=== PATIENT | female | born 1960 | race Caucasian/White ===

== ENCOUNTER 2016-05-30 06:39 | Day surgery (SDC) | payer BC ==
[2016-05-30] MEDS ORDERED: Sodium Chloride 0.9% 1,000 ML IV SCH (07:00)
[2016-05-30] MEDS ORDERED: Propofol 200 MG/20 ML SDV ONE ×2 (07:33→07:52)
[2016-05-30] MEDS ORDERED: Midazolam 1 MG/ML 2 ML SDV ONE (07:33)
[2016-05-30] MEDS ORDERED: fentaNYL 100 MCG/2 ML SDV ONE ×2 (07:33→07:44)
--- NOTE | 2016-05-30 08:30 | PCM.OPNOTE ---
- General Post-Op/Procedure Note Date of Surgery/Procedure: 05/30/16 Operative Procedure(s): Colonoscopy with biopsy Findings: Polyp at 10 cm, splenic flexure and proximal descending Pre Op Diagnosis: Screening colonoscopy Post-Op Diagnosis: 3 polyps biopsied 10 cm, splenic flexure and proximal descending Primary Surgeon: Kareem Sandoval Sr Secondary Surgeon: Kareem Sandoval Sr Condition: Good Free Text/Narrative:: Sherrie Jha is a 56-year-old white female comes in for screening colonoscopy. She has no other concerns at present time. The risks and benefits were explained to her the procedure was done as an outpatient. During the procedure anesthesia was given by nurse cardiovascular operating room nurse and we used 100 mg of fentanyl 100 mcg of fentanyl and 400 mg of propofol. The Olympus 180 telescope was used. With the gloved finger the rectum was examined and then the tube was placed into the rectum and advanced under direct vision. At the clinic flexure noted a broad-based polyp this was biopsied and picture was taken. We then advanced and got to just before the cecum and noted a small polyp picture was taken and biopsy was done. The cecum was unremarkable. Upon slow retraction of the tube there were infrequent diverticuli noted. At 10 cm noted another polyp appeared to be hyperplastic this was biopsied. The rectum was unremarkable and the tube was removed the patient tolerated the procedure well. Preop: #1. Screening colonoscopy. Postop: 3 polypoid lesions were noted one at 10 cm one is splenic flexure and 1 at the proximal ascending colon. Biopsy report pending with the pathology report. She'll need another colonoscopy in 3 years.
[2016-05-30 10:03] VITALS: BP 111/74
== END 2016-05-30 09:50 | disposition home or self-care (01) ==
LOC: JP.SDS 06:39
PROVIDERS: ATTEND Internal Medicine
PROC: 0DBE8ZX Excision of Large Intestine, Via Natural or Artificial Opening Endoscopic, Diagnostic (ICD-10-PCS; principal; 2016-05-30)
PROC: 0DBK8ZX Excision of Ascending Colon, Via Natural or Artificial Opening Endoscopic, Diagnostic (ICD-10-PCS; 2016-05-30)
DX: Z12.11 Encounter for screening for malignant neoplasm of colon (principal); D12.3 Benign neoplasm of transverse colon; D12.2 Benign neoplasm of ascending colon; Z88.1 Allergy status to other antibiotic agents; Z88.2 Allergy status to sulfonamides
CPT/HCPCS: 36415; 45380; 80061; J2704; J3010; J7040; 88305; J2250

== ENCOUNTER 2020-05-04 06:41 | Day surgery (SDC) | payer BC ==
[2020-05-04] MEDS ORDERED: Midazolam 1 MG/ML 2 ML SDV ONE (07:09)
[2020-05-04] MEDS ORDERED: Propofol 200 MG/20 ML SDV ONE ×2 (07:09→07:46)
[2020-05-04] MEDS ORDERED: fentaNYL 100 MCG/2 ML SDV ONE (07:09)
[2020-05-04] MEDS ORDERED: Sodium Chloride 0.9% 1,000 ML IV SCH (07:15)
[2020-05-04 10:21] VITALS: BP 122/73; PULSE 69
--- NOTE | 2020-05-04 13:55 | PROC ---
DATE OF PROCEDURE: SURGEON: Kareem Sandoval MD INDICATIONS: This is a 60-year-old female who comes in for a screening colonoscopy. The risks and benefits were explained to the patient for colonoscopy. PROCEDURE IN DETAIL: She was taken to the OR. Anesthesia was given by nurse sales assistant. During the procedure, used 2 mg of Versed, 100 mcg of fentanyl, and 250 mg of propofol. The Olympus 180L scope was used. With a gloved finger, the rectum was examined and tube was placed into the rectum and advanced under direct vision. We did get to the cecum with the assistance of external pressure. Just proximal to the cecum, noted a small polyp that appeared hyperplastic, this was biopsied. Slow retraction of the tube noted no lesions or ulceration, and no abnormality except for diverticula, appeared entirely benign and not active. The rectum was unremarkable. The tube was removed. The patient tolerated the procedure well. PREOPERATIVE DIAGNOSIS: Screening colonoscopy. POSTOPERATIVE DIAGNOSES: 1. Small hyperplastic polyp just proximal to the cecum. 2. Diverticula. RECOMMENDATIONS: Routine screening should be done. I expect the polyp to be benign. Kareem Sandoval MD /[id number]
== END 2020-05-04 09:15 | disposition home or self-care (01) ==
LOC: JP.SDS 06:41
PROVIDERS: ATTEND Internal Medicine
DX: Z12.11 Encounter for screening for malignant neoplasm of colon (principal); D12.2 Benign neoplasm of ascending colon; K57.30 Diverticulosis of large intestine without perforation or abscess without bleeding; E66.9 Obesity, unspecified; Z88.0 Allergy status to penicillin; Z88.2 Allergy status to sulfonamides; Z68.28 Body mass index [BMI] 28.0-28.9, adult
CPT/HCPCS: 45380; J2250; J2704; J3010; J7030